=== PATIENT | male | born 1995 | race Caucasian/White ===

== ENCOUNTER 2017-11-03 21:38 | Inpatient (IN) | payer OTHER ==
[~2017-11-03] VITALS: Ht 170.2 cm; Wt 93.0 kg
[~2017-11-03 21:38] MED LIST: AMITRIPTYLINE H10 M3; AMOXICILLIN875 MG PO; EXCEDRIN CAPLE1 EACH; TACROLIMUS1 MG PO
[2017-11-03 21:39] VITALS: BP 136/95
[2017-11-03] MEDS ORDERED: HALOPERIDOL 5 MG5 MG PO (21:46)
[2017-11-03] MEDS ORDERED: LEXAPRO20 MG PO (21:46)
[2017-11-03] MEDS ORDERED: REMERON15 MG PO (21:47)
[2017-11-03] MEDS ORDERED: BENZTROPINE MES1 MG PO (21:47)
[2017-11-03 22:23] LABS: ABSOLUTE NEUTROPHILS 15.8 thou/uL (1.4-8.2); BASOPHILS 0.2 % (0.0-2.0); EOSINOPHILS 0.1 % (0.0-3.0); HEMATOCRIT 47.4 % (42.0-52.0); HEMOGLOBIN 16.4 gm/dL (14.0-18.0); MCH 28.8 pg (26.0-34.0); MCHC 34.5 g/dL (28.0-37.0); MCV 83.4 fL (80.0-100.0); MONOCYTES 5.5 % (1.0-8.0); PLATELET COUNT 140 thou/uL (150-400); POLYS 87.2 % (36.0-66.0); RBC 5.69 mil/uL (4.50-6.00); RDW 14.4 % (10.5-14.5); WBC 18.2 thou/uL (4.0-11.0)
[2017-11-03 22:31] LABS: CALCIUM 9.2 mg/dL (8.5-10.1); CREATININE 1.1 mg/dL (0.7-1.3); POTASSIUM 3.3 mmol/L (3.5-5.1)
[2017-11-03 22:37] LABS: ALBUMIN 4.4 g/dL (3.4-5.0); TOTAL BILIRUBIN 0.7 mg/dL (<0.1-1.0); TOTAL PROTEIN 7.9 g/dL (6.4-8.2)
[2017-11-03 23:02] LABS: URINE BILIRUBIN NEGATIVE (Negative); URINE BLOOD NEGATIVE (Negative); URINE CLARITY CLEAR; URINE COLOR YELLOW; URINE GLUCOSE-RANDOM* NEGATIVE (Negative); URINE KETONES NEGATIVE (Negative); URINE LEUKOCYTES NEGATIVE (Negative); URINE NITRITE NEGATIVE (Negative); URINE PROTEIN (DIPSTICK) NEGATIVE (Negative); URINE SPECIFIC GRAVITY 1.025 (1.005-1.035); URINE UROBILINOGEN 0.2 E.U./dl (0.2-1.0)
[2017-11-04 01:30] VITALS: BP 130/63; BP 131/85
[2017-11-04] MEDS ORDERED: CELEXA20 MG PO (02:28)
[2017-11-04 03:41] LABS: URINE BILIRUBIN NEGATIVE (Negative); URINE BLOOD NEGATIVE (Negative); URINE CLARITY CLEAR; URINE COLOR YELLOW; URINE GLUCOSE-RANDOM* NEGATIVE (Negative); URINE KETONES NEGATIVE (Negative); URINE LEUKOCYTES-REFLEX NEGATIVE (Negative); URINE NITRITE-REFLEX NEGATIVE (Negative); URINE PROTEIN (DIPSTICK) NEGATIVE (Negative); URINE UROBILINOGEN 0.2 E.U./dl (0.2-1.0)
[2017-11-04 03:49] LABS: AMP/METHAMP Negative (Negative); BARBITURATES Negative (Negative); BENZODIAZEPINES Negative (Negative); COCAINE Negative (Negative); METHADONE Negative (Negative); OPIATES Negative (Negative); PCP Negative (Negative)
[2017-11-04 06:11] VITALS: BP 115/75
[2017-11-04 06:16] LABS: HEMATOCRIT 43.4 % (42.0-52.0); MCH 29.2 pg (26.0-34.0); MCHC 34.6 g/dL (28.0-37.0); MCV 84.2 fL (80.0-100.0); RBC 5.16 mil/uL (4.50-6.00); RDW 14.7 % (10.5-14.5); WBC 10.6 thou/uL (4.0-11.0)
[2017-11-04 06:29] LABS: CALCIUM 8.2 mg/dL (8.5-10.1); POTASSIUM 3.5 mmol/L (3.5-5.1)
[2017-11-04 09:51] VITALS: BP 95/52
[2017-11-04] MEDS ORDERED: TACROLIMUS1 MG PO (13:43)
[2017-11-04 20:00] VITALS: BP 109/58
[2017-11-05 04:00] VITALS: BP 98/65
[2017-11-05] MEDS ORDERED: FLAGYL500 MG PO (09:45)
[2017-11-05] MEDS ORDERED: FAMOTIDINE 10 M10 MG PO (09:45)
[2017-11-05 10:21] VITALS: BP 102/63
[2017-11-05 13:55] VITALS: BP 102/63
[2017-11-05 14:59] VITALS: BP 102/63
== END 2017-11-05 14:55 | disposition home or self-care (01) | DRG 871 ==
LOC: ER 21:38 → 4N 11-04 00:51 → EROBS 11-04 00:51 → 4N 11-04 01:25 → ENTRNSPT 11-05 14:48 → EDTRNSPTSTS 11-05 14:51 → 4N 11-05 14:55
PROVIDERS: Nurse Practitioner; Nurse Practitioner Family; Physician Assistant
DX: A41.9 Sepsis, unspecified organism (principal); K83.1 Obstruction of bile duct; E43 Unspecified severe protein-calorie malnutrition; Z94.4 Liver transplant status; K52.9 Noninfective gastroenteritis and colitis, unspecified; E86.0 Dehydration; E87.6 Hypokalemia; F31.9 Bipolar disorder, unspecified; Z91.048 Other nonmedicinal substance allergy status; Z90.49 Acquired absence of other specified parts of digestive tract; Z79.899 Other long term (current) drug therapy
CPT/HCPCS: 10091

== ENCOUNTER 2019-07-20 20:20 | Emergency (ER) | payer OTHER ==
[~2019-07-20] VITALS: Ht 172.7 cm; Wt 101.6 kg
[~2019-07-20 20:20] MED LIST changes: +BENZTROPINE MES1 MG PO; +CELEXA20 MG PO; +FAMOTIDINE 10 M10 MG PO; +FLAGYL500 MG PO; +HALOPERIDOL 5 MG5 MG PO; +LEXAPRO20 MG PO; +REMERON15 MG PO
[2019-07-20 23:16] LABS: ABSOLUTE NEUTROPHILS 6.4 thou/uL (1.4-8.2); BASOPHILS 0.6 % (0.0-2.0); EOSINOPHILS 1.5 % (0.0-3.0); HEMATOCRIT 46.4 % (42.0-52.0); MCH 28.7 pg (26.0-34.0); MCHC 34.5 g/dL (28.0-37.0); MCV 83.3 fL (80.0-100.0); MONOCYTES 7.3 % (1.0-8.0); PLATELET COUNT 135 thou/uL (150-400); POLYS 65.6 % (36.0-66.0); RBC 5.57 mil/uL (4.50-6.00); RDW 14.8 % (10.5-14.5); WBC 9.8 thou/uL (4.0-11.0)
[2019-07-20 23:52] LABS: CALCIUM 9.4 mg/dL (8.5-10.1); CREATININE 1.2 mg/dL (0.7-1.3); POTASSIUM 3.5 mmol/L (3.5-5.1)
[2019-07-20 23:58] LABS: TOTAL BILIRUBIN 0.6 mg/dL (<0.1-1.0); TOTAL PROTEIN 7.7 g/dL (6.4-8.2)
[2019-07-21 01:31] VITALS: BP 114/88
== END 2019-07-21 01:33 | disposition home or self-care (01) ==
LOC: ER 20:20
PROVIDERS: Emergency Medicine
DX: R19.7 Diarrhea, unspecified (principal); F32.9 Major depressive disorder, single episode, unspecified